=== PATIENT | female | born 1955 | race Caucasian/White ===

== ENCOUNTER 2017-06-09 11:00 | Observation (INO) | payer OTHER ==
[~2017-06-09] VITALS: Ht 160 cm; Wt 81.2 kg
[2017-06-09 15:14] VITALS: BP 138/79
[2017-06-09 15:42] LABS: APPEARANCE,URINE SLIGHTLY CLOUDY (CLEAR); BILIRUBIN,URINE Negative (NEGATIVE); COLOR,URINE Dark Yellow (YELLOW); GLUCOSE, URINE (UA) Negative (NEGATIVE); KETONES,URINE Negative (NEGATIVE); LEUKOCYTE ESTERASE ,URINE Negative (NEGATIVE); NITRATE,URINE Negative (NEGATIVE); OCCULT BLOOD,URINE Negative (NEGATIVE); PROTEIN,URINE Negative (NEGATIVE); UROBILINOGEN,URINE 0.2 mg/dL (0.2-1.0)
[2017-06-09] MEDS ORDERED: CITA-107 PO (15:47)
[2017-06-09] MEDS ORDERED: CYCL10TA7 PO (15:47)
[2017-06-09] MEDS ORDERED: LOSA50TA37 PO (15:47)
[2017-06-09] MEDS ORDERED: TRAZ-144 PO (15:47)
[2017-06-09] MEDS ORDERED: METH10TA7 PO (15:47)
[2017-06-09] MEDS ORDERED: LOVA20TA3 PO (15:47)
[2017-06-09] MEDS ORDERED: ASPI-555 PO (15:47)
[2017-06-09] MEDS ORDERED: MONT10TA24 PO (15:47)
[2017-06-09] MEDS ORDERED: AMLO2.5T PO (15:47)
[2017-06-09 15:52] LABS: BACTERIA,URINE Few /HPF (None Seen); RBC,URINE 0-1 /HPF (0-1); WBC,URINE 0-1 /HPF (0-1)
[2017-06-09 15:53] LABS: SQUAMOUS EPITHELIAL CELL,UR Few /LPF (0-2)
[2017-06-09] MEDS: CEFAZOLIN SODIUM 1 GM VIAL IVP SCH (16:45)
[2017-06-10] VITALS (22 sets, daily range): BP systolic 91–143; BP diastolic 50–82
[2017-06-10] MEDS ORDERED: LACTATED RINGERS 1000ML 1,000 ML IV ONE ×2 (06:53→10:31)
[2017-06-10] MEDS: CEFAZOLIN SODIUM 1 GM VIAL IVP SCH ×3 (07:38→21:07)
[2017-06-10] MEDS ORDERED: LIDOCAINE PF 2% 5ML ABBOJECT ONE ×2 (07:46→08:56)
[2017-06-10] MEDS ORDERED: MIDAZOLAM HCL 1 MG/ML 2ML VIAL ONE (07:47)
[2017-06-10] MEDS ORDERED: PROPOFOL 10 MG/ML 20ML VIAL IV ONE (07:47)
[2017-06-10] MEDS ORDERED: FENTANYL CITRATE PF 50 MCG/1 ML 2ML VIAL ONE ×2 (07:47→09:34)
[2017-06-10] MEDS ORDERED: ROPIVACAINE 0.5% 5MG/ML 30ML IJ ONE (08:22)
[2017-06-10] MEDS ORDERED: DEXAMETHASONE SOD PHOSPHATE 10MG/ML 1ML VIAL ONE (08:56)
[2017-06-10 09:25] LABS: HEMATOCRIT 35.1 % (36-48)
[2017-06-10] MEDS ORDERED: LACTATED RINGERS 1000ML 1,000 ML IV SCH (10:45)
[2017-06-10] MEDS ORDERED: CEFAZOLIN 2GM / 50 ML 50 ML IV SCH (10:45)
[2017-06-10] MEDS ORDERED: BISACODYL 10 MG SUPP.RECT RC PRN (10:45)
[2017-06-10] MEDS ORDERED: MAGNESIUM HYDROXIDE 30 ML/UDCUP PO PRN (10:45)
[2017-06-10] MEDS ORDERED: DEXTROSE 5%-LACTATED RINGERS 1,000 ML IV SCH (10:45)
[2017-06-10] MEDS ORDERED: KETOROLAC TROMETHAMINE 30MG/ML ONE (12:38)
[2017-06-10] MEDS: KETOROLAC TROMETHAMINE 30MG/ML IV PRN ×2 (12:49→18:12)
[2017-06-10 18:10] LABS: HEMATOCRIT 39.6 % (36-48)
[2017-06-10] MEDS ORDERED: ONDANSETRON HCL 4 MG/2 ML VIAL ONE (20:42)
[2017-06-10] MEDS ORDERED: HYDROMORPHONE HCL 0.5 MG/0.5 ML ML ONE (20:44)
[2017-06-10] MEDS ORDERED: HYDROMORPHONE HCL 2 MG/ML VIAL IVP PRN (21:00)
[2017-06-11] VITALS: BP 128/78
[2017-06-11 00:31] LABS: HEMATOCRIT 37.2 % (36-48)
[2017-06-11] MEDS ORDERED: HYDROMORPHONE HCL 0.5 MG/0.5 ML ML ONE (01:46)
[2017-06-11] MEDS: ONDANSETRON HCL 4 MG/2 ML VIAL IVP PRN ×3 (01:58→14:40)
[2017-06-11 04:25] VITALS: BP 110/60
[2017-06-11] MEDS: CEFAZOLIN SODIUM 1 GM VIAL IVP SCH (05:38)
[2017-06-11 06:15] LABS: HEMATOCRIT 36.3 % (36-48)
[2017-06-11 07:30] VITALS: BP 114/69
[2017-06-11] MEDS ORDERED: CYCLOBENZAPRINE HCL 10 MG TABLET PO PRN (08:30)
[2017-06-11] MEDS ORDERED: CITALOPRAM 20 MG TABLET PO PRN (08:30)
[2017-06-11] MEDS ORDERED: LOSARTAN 50 MG TABLET PO SCH (09:00)
[2017-06-11] MEDS ORDERED: METHIMAZOLE 10 MG TAB PO SCH (09:00)
[2017-06-11] MEDS ORDERED: AMLODIPINE BESYLATE 2.5 MG TAB PO SCH (09:00)
[2017-06-11] MEDS ORDERED: ASPIRIN 81 MG EC TAB PO SCH (09:00)
[2017-06-11] MEDS: HYDROMORPHONE HCL 0.5 MG/0.5 ML ML IVP PRN ×2 (09:44→14:40)
[2017-06-11 11:00] VITALS: BP 112/59
[2017-06-11] MEDS: KETOROLAC TROMETHAMINE 30MG/ML IV PRN (12:48)
[2017-06-11] MEDS ORDERED: ATORVASTATIN CALCIUM 10 MG TABLET PO SCH (21:00)
[2017-06-11] MEDS ORDERED: MONTELUKAST SODIUM 10 MG TAB PO SCH (21:00)
[2017-06-11] MEDS ORDERED: TRAZODONE HCL 50 MG TAB PO SCH (21:00)
== END 2017-06-11 15:35 | disposition home or self-care (01) ==
LOC: EDSTATUS 11:00 → DAHIP 06-10 06:21 → 4AH 06-10 09:56
DX: S83.242A Other tear of medial meniscus, current injury, left knee, initial encounter (principal); I10 Essential (primary) hypertension; E78.00 Pure hypercholesterolemia, unspecified; E03.9 Hypothyroidism, unspecified; F32.9 Major depressive disorder, single episode, unspecified; M71.20 Synovial cyst of popliteal space [Baker], unspecified knee; M17.12 Unilateral primary osteoarthritis, left knee; X58.XXXA Exposure to other specified factors, initial encounter; Y93.89 Activity, other specified; Y92.89 Other specified places as the place of occurrence of the external cause; Y99.8 Other external cause status; Z91.048 Other nonmedicinal substance allergy status
CPT/HCPCS: 27332; 36415 ×3; 81001; 85014 ×4; 85018 ×4; 86850; 86900; 86901; 86922; 88304; 88311; 96374; 96375 ×2; 96376 ×2; 97039; 97116; 97161; A4218 ×4; A4649; A4930 ×2; A6223; G0378 ×34; G8978; G8979; G8980; G8981; G8982; G8983; J0690 ×4; J1100; J1170 ×4; J1885 ×3; J2001 ×2; J2250; J2405 ×4; J2704; J2795; J3010 ×2; J7030; J7120 ×2